=== PATIENT | female | born 1985 | race Caucasian/White ===

== ENCOUNTER 2020-04-22 16:17 | Outpatient (CLI) | payer OTHER, SELFPAY ==
--- NOTE | ~2020-04-22 | CT_ITS ---
EXAMINATION: CT abdomen pelvis w con DATE: 04/22/2020 17:26 INDICATION: Left lower quadrant abdominal pain TECHNIQUE: Computed tomography (CT) of the abdomen and pelvis was performed with 100 cc Omnipaque 350 intravenous contrast. The dose-length product was 1513.44 mGy-cm. Automated exposure control and ite rative reconstruction technique were employed. COMPARISON: None. FINDINGS: Bibasilar dependent atelectasis. Heart size normal. No significant pleural or pericardial e ffusion. The liver, spleen, pancreas, adrenal glands and kidneys are unremarkable. Gallbladder is present. No significant vascular abnormality. No lymphadenopathy. There is an IUD in the endometrium. There are s mall ileocolic lymph nodes, likely reactive. No free air or free fluid. Nonobstructive bowel gas frandy dequan. No abnormal pelvic masses or fluid collections. No osteolytic or osteoblastic lesions. IMPRESSION: 1. No acute abdominal abnormality. Reviewed, dictated and finalized at location A.
[2020-04-22 16:37] LABS: Basophils Absolute Auto 0.03 K/mm3 (0.00-0.10); Basophils Percent Auto 0.4 % (0.0-1.0); Eosinophils Absolute Auto 0.23 K/mm3 (0.02-0.50); Eosinophils Percent Auto 2.9 % (1.0-6.0); Hematocrit 40.1 % (35.0-49.0); Hemoglobin 13.1 g/dL (12.0-15.0); Immature Granulocyte Absolute 0.02 K/mm3 (0.00-0.00); Immature Granulocyte Percent A 0.3 % (0.0-0.0); Lymphocytes Absolute Auto 2.68 K/mm3 (1.10-4.50); Lymphocytes Percent Auto 33.7 % (18.0-42.0); Mean Corpuscular HGB Conc 32.7 g/dL (32.0-36.0); Mean Corpuscular Hemoglobin 26.6 pg (27.0-31.0); Mean Corpuscular Volume 81.5 fL (78.0-102.0); Mean Platelet Volume 10.5 fl (9.2-11.8); Monocytes Absolute Auto 0.59 K/mm3 (0.10-0.90); Monocytes Percent Auto 7.4 % (2.0-11.0); Neutrophils Absolute Auto 4.4 K/mm3 (1.7-7.2); Neutrophils Percent Auto 55.3 % (50.0-70.0); Platelet Count Result 199 K/mm3 (150-420); Red Blood Count 4.92 M/mm3 (4.20-5.40); Red Cell Distribution Width 13.3 % (11.6-14.4); Reticulocyte Hemoglobin Conten 30.5 pg (28.0-35.0); Reticulocyte Percent 1.29 % (0.50-1.50); Reticulocytes Absolute 0.06 M/mm3 (0.02-0.1)
[2020-04-22 17:29] LABS: Alanine Aminotransferase 26 U/L (14-59); Albumin Level 3.6 g/dL (3.4-5.0); Alkaline Phosphatase 65 U/L (46-116); Anion Gap 9 mmol/L (8-16); Aspartate Amino Transferase 16 U/L (15-37); Bilirubin,Total 0.4 mg/dL (0.00-1.00); Blood Urea Nitrogen 9 mg/dL (7-18); Calcium 8.5 mg/dL (8.5-10.1); Carbon Dioxide 28 mmol/L (21-32); Chloride 103 mmol/L (98-108); Estimated Glomerular Filt Rate > 60; Ferritin 52 ng/mL (8-252); Glucose 79 mg/dL (70-99); Iron 60 ug/dL (50-170); Osmolality Calculated 287 mOsm/kg (285-295); Percent Iron Saturation 19 % (12-57); Potassium 3.8 mmol/L (3.5-5.1); Sodium 140 mmol/L (136-145); Total Protein 6.8 g/dL (6.4-8.2)
[2020-04-22 17:57] LABS: Erythrocyte Sedimentation Rate 16 mm/hr (0-15)
[2020-04-26 11:15] LABS: ANCA Screen Negative (Negative); Myeloperoxidase Ab <1.0 AI (<1.0); Proteinase-3 Ab <1.0 AI (<1.0); S cerevisiae Ab (IgA) 3.9 U (<=20.0); S cerevisiae Ab (IgG) 6.9 U (<=20.0)
== END 2020-04-22 16:18 | disposition home or self-care (01) ==
LOC: CHSLAB 16:19
PROVIDERS: PCP Internal Medicine; Visit Provider Internal Medicine
DX: R10.32 Left lower quadrant pain (principal); K92.1 Melena
CPT/HCPCS: 36415; 74177; 80053; 82728; 83540; 83550; 85025; 85046; 85652; 86021; 86671; Q9965

== ENCOUNTER 2020-04-23 16:41 | Outpatient (CLI) | payer OTHER, SELFPAY ==
[2020-04-30 18:12] LABS: Calprotectin, Stool 16 mcg/g
== END 2020-04-23 16:42 | disposition home or self-care (01) ==
LOC: CHSLAB 16:43
PROVIDERS: PCP Internal Medicine; Visit Provider Internal Medicine
DX: R10.32 Left lower quadrant pain (principal); K92.1 Melena
CPT/HCPCS: 83993

== ENCOUNTER 2022-01-12 15:18 | Outpatient (CLI) | payer OTHER, SELFPAY ==
[2022-01-12 16:05] LABS: SARS-CoV-2 RNA PCR Positive (Negative)
== END 2022-01-12 15:19 | disposition home or self-care (01) ==
LOC: CHSLAB 15:20
PROVIDERS: PCP Nurse Practitioner Family; Visit Provider Nurse Practitioner Family
DX: U07.1 COVID-19 (principal)
CPT/HCPCS: C9803; U0003; U0005

== ENCOUNTER 2023-05-08 07:41 | Outpatient (CLI) | payer OTHER, SELFPAY | END 2023-05-08 07:42 | disposition home or self-care (01) | LOC: CHSIMG 07:42 | PROVIDERS: PCP Nurse Practitioner Family; Visit Provider Nurse Practitioner Family | DX: G40.89 Other seizures (principal) | CPT/HCPCS: 99199 ==

== ENCOUNTER 2023-05-13 10:30 | Outpatient (CLI) | payer OTHER, SELFPAY ==
--- NOTE | ~2023-05-13 | MR_ITS ---
EXAMINATION: MR brain/brain stem wo/w con DATE: 05/13/2023 12:08 INDICATION: New onset seizures. TECHNIQUE: Magnetic resonance imaging (MRI) of the brain and brainstem was performed without and with 20 mL MultiHance intravenous contrast. COMPARISON: None. FINDINGS: The hippocampi are normal and symmetric. There is no intracranial hemorrhage, acute infarct ion, or abnormal intracranial mass lesion. The ventricles are normal in size. There is mild mucosal t hickening in the maxillary sinuses. The orbits are normal. There is a trace right mastoid effusion. IMPRESSION: 1. Normal brain. Reviewed, dictated and finalized at location A. [employer] IMPRESSION: 1. Normal brain.
== END 2023-05-13 10:31 | disposition home or self-care (01) ==
LOC: CHSIMG 10:33
PROVIDERS: PCP Internal Medicine; Visit Provider Nurse Practitioner Family
DX: R56.9 Unspecified convulsions (principal)
CPT/HCPCS: 70553; A9577

== ENCOUNTER 2023-08-22 10:46 | Emergency (ER) | payer OTHER, SELFPAY ==
--- NOTE | ~2023-08-22 | CT_ITS ---
CT OF bilateral orbits with contrast EXAMINATION: CT orbit BI w con DATE: 08/22/2023 14:22 INDICATION: Concern for left orbital cellulitis, pain with ocular motion, history of scratched cornea TECHNIQUE: Computed tomography (CT) of the bilateral orbits was performed 75 mL Omnipaque 350 intrave nous contrast. Automated exposure control and iterative reconstruction technique were employed. The d ose-length product was 138.29 mGy-cm. COMPARISON: MR brain 05/13/2023 FINDINGS: Right maxillary retention cyst/polyp, remaining aerated spaces are clear. No fracture. No osseous ero pamela or periosteal change. No lytic or blastic lesion. The globes are symmetric. Normally located hussain ses. No vitreous hemorrhage. Symmetric normal-appearing intraocular muscles. Symmetric normal-appeari ng optic nerves. Normal intraconal fat. Normal preseptal tissues. IMPRESSION: Unremarkable bilateral orbits CT findings. Reviewed, dictated and finalized at location K. [facility]
[2023-08-22 11:48] VITALS: BP 119/70; PULSE 70; RESP 14; TEMP 36.4; O2SAT 100
--- NOTE | 2023-08-22 12:28 | ED.EYEPROB ---
HPI - Eye Problem General Chief complaint: Eye Problems Stated complaint: Eye swollen Time Seen by Provider: 08/22/23 12:25 Source: patient Mode of arrival: ambulatory Limitations: no limitations History of Present Illness HPI Narrative: patient presents with left eye pain and swelling. She noted that she started developing pain 3 days ago particularly as she opens her eye. She wears gas permeable contact since she took these out. She did notice that the swelling began yesterday and she had tearing and matted eyelashes but otherwise has not been having drainage. No foreign body sensation, she is having mild photophobia. No food for years. She had a headache yesterday. She experiences some pain with extraocular movements. She noted that her eye started become red yesterday she is having some slightly blurred vision though attributes this to a not wearing her contacts currently. She also did note that her eyelid was starting to swell a little bit. History of scratched cornea. Has an opthalmologist. Related Data Home Medications Medication Instructions Recorded Confirmed Mucinex 07/01/19 Vicks DayQuil-NyQuil 07/01/19 Allergies Allergy/AdvReac Type Severity Reaction Status Date / Time vancomycin Allergy Unknown RED MAN Verified 08/22/23 11:48 [facility] Past Medical History Medical History (Updated 08/23/23 @ 00:00 by Background Daemon) Keratoconus Exam Narrative: GENERAL: Well-appearing, well-nourished, and in no acute distress. HEAD: Normocephalic, atraumatic. EYES: injected, non icteric, mild eyelid swelling without periorbital swelling. No appreciable discharge. EOMI. Pupils equally reactive. No APD. No proptosis. ENT: Nares clear, no rhinorrhea or epistaxis. NECK: Supple. CHEST: Speaking in full sentences No respiratory distress. HEART: Regular rate and rhythm. . ABDOMEN: Soft, nondistended. EXTREMITIES: Normal range of motion. No edema. SKIN: Warm, dry, no rash. NEURO: No focal deficits. Alert and oriented x3. PSYCH: Normal mood and affect. Course Vital Signs Vital signs: Vital Signs Temperature 97.5 F L 08/22/23 11:48 Pulse Rate 70 08/22/23 11:48 Respiratory Rate 14 08/22/23 11:48 Blood Pressure 119/70 08/22/23 11:48 Pulse Oximetry 100 08/22/23 11:48 Oxygen Delivery Room Air 08/22/23 11:48 Temperature 98.5 F 08/22/23 15:19 Pulse Rate 69 08/22/23 15:19 Respiratory Rate 16 08/22/23 15:19 Blood Pressure 129/85 08/22/23 15:19 Pulse Oximetry 100 08/22/23 15:19 Oxygen Delivery Room Air 08/22/23 11:48 MDM - Eye Problem MDM Narrative Medical decision making narrative: Patient presents with left eye pain and swelling. in the emergency department she is afebrile with vital signs within normal limits. I did order visual acuity and fluroscein strip. Requested RN bring Wood's lamp, slit lamp, and Caio-Pen to bedside. Visual acuity 20/50 on the R and 20/100 on the left. Fluroscein study unremarkable. Attempted to get IOP but unable to with tonopen despite multiple attempts. She does state they have had trouble obtaining this measurement previously in the setting of her keratoconus. Although low suspicion, will obtain head CT to rule out orbital cellulitis. This is negative. I suspect this is corneal abrasion, especially given history of use of gas permeable contacts which have since been removed. Rx for fluroquinoline opthalmalgic gtt with explicit instructions as well as sline drops which can be placed in the fridge for cooling relief. Given referral for follow up. Differential Diagnosis Differential diagnosis: Likely corneal abrasion, conjunctivitis, acute iritis, periorbital cellulitis, subconjunctival hemorrhage and corneal ulcer Lab Data Attestation: I reviewed the patient's lab results. Lab results narrative: Renal funciton normal 08/22/23 14:10 Labs: Lab Results 08/22/23 Range/Units 14:10 Cre
[2023-08-22 13:07] VITALS: BP 115/75; PULSE 70; RESP 14; O2SAT 100
[2023-08-22 14:01] VITALS: BP 123/81; PULSE 92; RESP 13; O2SAT 99
[2023-08-22 14:11] LABS: Estimated CRCL calculation 115 ml/min; Estimated Glomerular Filt Rate > 60
[2023-08-22 14:39] VITALS: BP 112/68; PULSE 70; RESP 14; O2SAT 100
--- NOTE | 2023-08-22 15:12 | PC.NURSE ---
Report given to Sue JARAMILLO, all questions answered
[2023-08-22] MEDS: MOXIFLOXACIN HCL 0.5% 3 ML OPHTH SOLN 1 DROP AFFCTD EYE (15:14)
[2023-08-22 15:19] VITALS: BP 129/85; PULSE 69; RESP 16; TEMP 36.9; O2SAT 100
== END 2023-08-22 15:20 | disposition home or self-care (01) ==
PROVIDERS: Emergency Provider Student in an Organized Health Care Education/Training Program; PCP Internal Medicine
DX: S05.02XA Injury of conjunctiva and corneal abrasion without foreign body, left eye, initial encounter (principal); X58.XXXA Exposure to other specified factors, initial encounter
CPT/HCPCS: 70481; 99284; A9270; Q9967